=== PATIENT | female | born 1975 | race Caucasian/White ===

== ENCOUNTER 2016-11-05 14:03 | Emergency (ER) | payer OTHER ==
[2016-11-05 15:05] LABS: HEMOGLOBIN 10.5 gm/dl (12.3-15.3); RED BLOOD COUNT 4.93 M/UL (4.00-5.10); WHITE BLOOD COUNT 7.6 K/UL (4.5-11.0)
[2016-11-05 15:19] LABS: BUN/CREATININE RATIO 10 (0-10)
== END 2016-11-05 16:35 | disposition home or self-care (01) ==
LOC: ER1 14:03
PROVIDERS: Physician Assistant Medical
DX: J40 Bronchitis, not specified as acute or chronic (principal); B34.9 Viral infection, unspecified; R94.5 Abnormal results of liver function studies; Z88.5 Allergy status to narcotic agent
CPT/HCPCS: 36415; 71020; 80053; 81001; 85025; 96361; 96374; 99283; J2405; J7030

== ENCOUNTER → 2016-11-28 | Outpatient (CLI) | payer OTHER | LOC: LAB 11:32 | DX: Z00.00 Encounter for general adult medical examination without abnormal findings (principal); D64.9 Anemia, unspecified; R74.8 Abnormal levels of other serum enzymes; R63.5 Abnormal weight gain | CPT/HCPCS: 36415; 80061; 80074; 82270; 82728; 83540; 83550 ==

== ENCOUNTER → 2016-12-11 | Outpatient (CLI) | payer OTHER | LOC: KOH-I 07:58 | DX: R74.8 Abnormal levels of other serum enzymes (principal) | CPT/HCPCS: 76705 ==